=== PATIENT | female | born 1995 | race American Indian/Alaskan Native ===

== ENCOUNTER 2017-06-30 06:13 | Inpatient (IN) | payer MEDICAID ==
[~2017-06-30 06:13] MED LIST: Acetaminophen 325 MG Tab PO PRN; Carboprost Tromethamine 250 MCG/1 ML Amp IM ONE; Citric Acid/Sodium Citrate Solution 30 ML Cup PO ONE; Methylergonovine 0.2 MG/1 ML Amp IM PRN; Misoprostol 400 MCG (4 X 100 MCG TAB) RECTAL PRN; Naloxone 2 MG/2 ML Syringe IVPUSH PRN; Ondansetron 4 MG/2 ML SDV IV PRN; Oxytocin/Normal Saline 30 UNIT/500 ML BAG IV SCH; Tranexamic Acid 1,000 MG in Sodium Chloride 0.9% 100 ML IV PRN; ceFAZolin 2 GM in Premix Bag 1 BAG IV ONE; diphenhydrAMINE 50 MG/ML SDV IVPUSH PRN; ePHEDrine 50 MG/ML SDV IVPUSH PRN
[2017-06-30] MEDS: Lactated Ringers 1,000 ML IV SCH ×4 (06:35→20:15)
[2017-06-30] MEDS ORDERED: Oxytocin/Normal Saline 60 UNIT/1,000 ML BAG ONE (07:02)
--- NOTE | 2017-06-30 08:07 | OBOUT ---
DATE: 06/30/2017 DATE AND TIME OF NST: 06/30/2017 at 0630 hours to 0650 hours. REASON FOR NST: 1. Intrauterine at 39-1/7 weeks confirmed with 20-6/7 weeks' ultrasound. 2. Previous , requests repeat low transverse . 3. GBS negative. 4. Anemia of with hemoglobin 7 upon admission. 5. Chlamydia in , treated, and negative on 06/01/2017. 6. Positive THC on urine drug screen in January 2017 at [facility]. 7. G2, P1-0-0-1. NST INTERPRETATION: During this time period, the heart tone baseline is approximately 125 to 130 and there are at least two 15 x 15 beats per minute accelerations making this strip reactive. It is also noted to be reassuring. Tocometer reveals potential of 4 to 5 contractions, which the patient feels. ASSESSMENT: 1. Nonstress test, reactive and reassuring. 2. Tocometer with contractions. PLAN: Due to her low hemoglobin, we have now called for 4 units to be typed and crossmatched with 2 to be given and 2 to be on hold. We will review and may delay surgery for the blood. Initial vitals were blood pressure 129/65 and heart rate 70. However, because the patient is romi, we will need to follow clinically and closely at this point in time given her history with a previous as well. For H and P, please see Epic notes, which are scanned in and reviewed with H and P done yesterday. No significant changes are elicitted other noted as above in terms of the contractions, anemia, and vital signs. For this, records were called for, reviewed, and supplemented by the patient's history, as well as review of systems fully reviewed and felt to be otherwise noncontributory other than listed. [facility] /[id number]
[2017-06-30] MEDS: Ferrous Sulfate 325 MG Tab PO SCH ×2 (08:16→17:24)
[2017-06-30] MEDS: Prenatal Multivitamin with Calcium/Folic Acid/Iron Tab PO SCH ×2 (08:17→17:24)
[2017-06-30] MEDS ORDERED: Acetaminophen/oxyCODONE 325-5 MG Tab PO PRN (10:00)
--- NOTE | 2017-06-30 14:31 | OR ---
DATE: 06/30/2017 PREOPERATIVE DIAGNOSES: 1. Intrauterine at 39-1/7 weeks, confirmed with 20-6/7-week ultrasound. 2. Previous , requests repeat low transverse . 3. Group B Streptococcus negative. 4. Anemia of with hemoglobin 7.7 upon admission. 5. Chlamydia in -treated, negative on 06/01/2017. 6. Positive THC on urine drug screen on admission and in January 2017. 7. Status post 1.5 to 2 units packed red blood cell transfusion. 8. 2, para 1-0-0-1. POSTOPERATIVE DIAGNOSES: 1. Intrauterine at 39-1/7 weeks confirmed with 20-6/7-week ultrasound, delivered. 2. Previous , requests repeat low transverse . 3. Group B Streptococcus negative. 4. Anemia of with hemoglobin 7.7 upon admission. 5. Chlamydia in -treated, negative on 06/01/2017. 6. Positive THC on urine drug screen on admission and in January 2017. 7. Status post 1.5 to 2 units packed red blood cell transfusion. 8. 2, para 1-0-0-1. 9. Tranexamic acid 1 g given after delivery of infant. PROCEDURE PERFORMED: NST followed by repeat low transverse . ASSISTANTS: Dr. Valencia and Rianna Yoo, MS-III ANESTHESIA: Spinal. EBL: 450 mL. IV FLUIDS: 330 mL red blood cells, 100 mL of normal saline, 800 mL of lactated Ringer's and 1 g of tranexamic acid. URINE OUTPUT: 100 mL and clear yellow. START: 09:58 UTERINE INCISION: 10:03 DELIVERY: 10:04 STOP: 10:22 FINDINGS: Female with Apgars 8 and 9. DESCRIPTION OF PROCEDURE IN DETAIL: Prior to bringing the patient to the operating room, she was on her 2nd unit of packed red blood cell transfusion due to her hemoglobin being 7.7 upon admission. She was noted to have contractions and monitored contractions and it was felt that after transfusions, we would perform her repeat low transverse . After proper consent was obtained, the patient was then brought to the operating room where spinal anesthetic was administered. A Marshall was placed in the preop under sterile conditions. Abdomen was prepped and draped in normal sterile fashion and placed in supine position with a left lateral tilt. A skin incision was then made on lower abdomen in transverse Pfannenstiel-type fashion over previous scar which was noted be keloid. This was carried down the fascia and scored in midline. Subcutaneous tissue was raked laterally with a Shay retractor, and fascial incision was extended in transverse fashion using curved Wise's. Fredy clamps x2 were used to grasp the superior aspect of the fascia, and rectus muscles were dissected from the fascia using sharp and blunt technique. In a similar fashion, Fredy clamps x2 were used to grasp the inferior portion of the incision, and rectus and pyramidalis muscles were dissected from the fascia using sharp and blunt technique. Rectus muscles in the midline with blunt technique. Abdominal cavity was entered in blunt technique. Incision was extended superiorly and inferiorly in blunt technique. Baljinder O large retractor was then introduced and used. Vesicouterine peritoneum was identified and incised in transverse fashion with Metzenbaum scissors, and bladder flap was made digitally. A curvilinear incision made on lower uterine segment at 1003 hours. Uterus was entered sharply. Clear fluid returned. The uterine incision was extended transverse fashion using blunt technique. vertex was then delivered through the incision followed by rest of the without difficulty. Mouth and nares were suctioned, cord was doubly clamped and cut. was brought to [facility] Team. Then approximately 10 mL of cord blood was obtained for labs. Placenta was then delivered with gentle cord traction and fundal massage. Uterine cavity was cleared of all blood, clots, and debris with lap sponge. Nickerson clamps were used to grasp the uterine incision, this was closed in a running, locked fashion, and tied at lateral margins with 1-0 Vicryl. Bleeding on the right lateral portion of the incision was noted. A gvdcje-nr-penk stitch was placed and hemostasis reassured. First inspection of the uterine incision revealed hemostasis. Baljinder O retractor was then removed, and paracolic gutters were then cleared of all blood, clots, and debris with lap sponge. Anterior cul-de-sac was then irrigated copiously, and all blood clots removed. Second and final inspection of the uterine incision and anterior cul-de-sac revealed hemostasis. Rectus muscles were then reapproximated in midline with [id number]-[id number] stitch using 1-0 Vicryl. Subfascial tissue was found to be hemostatic. Fascia closed in a running fashion and tied at lateral margin with 0 looped PDS. Subcutaneous tissue was irrigated copiously. Hemostasis reassured. Skin was reapproximated with medium matthew. Sterile Aquacel dressing applied. Uterine fundus was firm and massaged at the conclusion of the case, -1 below umbilicus. No immediate complications were noted. Sponge, lap, needle counts correct. The patient received 2 g Ancef preoperatively, Pitocin per protocol, and we will defer Toradol at conclusion of case. We will recheck a CBC at 4:00 p.m. approximately 6 hours from now, and she does have a couple more units on hand if she needs for blood transfusion. Mother and are currently stable time of dictation. [facility] /[id number]
[2017-06-30] MEDS ORDERED: Promethazine 25 MG/ML SDV IM ONE (14:34)
[2017-06-30] MEDS ORDERED: Dexamethasone 4 MG/ML SDV IV ONE (14:36)
[2017-06-30] MEDS ORDERED: Ondansetron 4 MG/2 ML SDV IV ONE (14:36)
[2017-06-30] MEDS ORDERED: Morphine PF 1 MG/ML Amp ONE (14:36)
[2017-06-30] MEDS ORDERED: Sodium Chloride 0.9% 100 ML IV ONE (14:36)
[2017-06-30] MEDS: Simethicone 80 MG Tab.Chew PO SCH ×3 (17:24→22:11)
[2017-06-30] MEDS ORDERED: Ketorolac 30 MG/ML SDV IVPUSH ONE (18:00)
[2017-06-30] MEDS: Docusate Sodium 100 MG Cap PO PRN (22:11)
[2017-06-30] MEDS: Acetaminophen/oxyCODONE 325-5 MG Tab PO PRN (22:12)
[2017-07-01] MEDS: Ketorolac 30 MG/ML SDV IVPUSH SCH ×3 (00:27→12:27)
[2017-07-01] MEDS: Lactated Ringers 1,000 ML IV SCH (03:28)
--- NOTE | 2017-07-01 09:11 | PN ---
DATE: 07/01/2017 SUBJECTIVE: Postop day #1, status post repeat low transverse section. No concerns per nursing staff other than decreased hemoglobin, and no concerns per patient. The patient feels that her pain is well controlled on current medication. She is tolerating a clear liquid diet per patient. Ambulation is minimal as Marshall catheter is still in place. She denies fevers or chills, lightheadedness or dizziness, headaches or blurry vision, shortness of breath or chest pain, nausea or vomiting, sharp abdominal pains or swelling, erythema or tenderness in any extremity. She is not passing gas and has not yet had a bowel movement and notes mild lochia. OBJECTIVE: Vital Signs: Temperature 98.3 Fahrenheit, heart rate 56, blood pressure 109/45, respiratory rate 16, and oxygen saturation 100% on room air. General: Pleasant and in no acute distress. Heart: Regular rate and rhythm. S1 and S2. Lungs: Clear to auscultation bilaterally with normal respiratory effort. Abdomen: Soft, minimally tender to palpation, nondistended. The uterus is firm and at the level of the umbilicus. No excessive tenderness by palpation. Aquacel dressing is clean, dry, and intact. No shadowing. Neurologic: No obvious neurologic deficits. Extremities: No erythema, edema, or tenderness in the upper extremities. Lower extremities covered by compression stockings. Skin: Warm, dry, and well perfused. LABORATORY DATA: Laboratory data drawn this morning: Hemoglobin 7.9, white blood cell 11.9, platelets 242, and hematocrit 25.9. ASSESSMENT: 1. Postoperative day #1, status post repeat low transverse section. 2. Intrauterine at 39 and 1/7th weeks, confirmed with a 20 and 6/7 weeks' ultrasound. 3. Group B streptococcus negative. 4. Anemia of with hemoglobin of 7.7 upon admission, status post transfusion of 2 units packed red blood cells. Current hemoglobin 7.9 and asymptomatic. 5. Chlamydia in , treated and negative on 06/01/2017. 6. Positive THC on UDS in January 2017 at [facility] and positive THC on UDS upon admit. 7. G2, P1-0-0-1. PLAN: Remove Marshall catheter today and encourage ambulation. Advance to general diet. We will repeat CBC without diff tomorrow morning to monitor hemoglobin. Continue all other routine and postoperative cares. Please see orders for further details. The plan has been discussed with the patient. She expressed understanding and is in agreement. We will continue to monitor closely. The history, physical, assessment and plan are per Dr. Valencia; and this note is being scribed for Dr. Valencia. The above note is consistent with my exam of the patient, and above plan was formulated per my recommendations [facility] /[id number] MTDD
[2017-07-01] MEDS: Simethicone 80 MG Tab.Chew PO SCH ×4 (09:16→17:46)
[2017-07-01] MEDS: Prenatal Multivitamin with Calcium/Folic Acid/Iron Tab PO SCH (09:16)
[2017-07-01] MEDS: Ferrous Sulfate 325 MG Tab PO SCH (09:16)
[2017-07-01] MEDS: Ibuprofen 800 MG Tab PO PRN (21:06)
[2017-07-01] MEDS: Docusate Sodium 100 MG Cap PO PRN (21:07)
[2017-07-02] MEDS: Ibuprofen 800 MG Tab PO PRN (06:09)
[2017-07-02] MEDS: Acetaminophen/oxyCODONE 325-5 MG Tab PO PRN (06:10)
[2017-07-02] MEDS: Simethicone 80 MG Tab.Chew PO SCH ×2 (09:56→13:20)
[2017-07-02] MEDS: Ferrous Sulfate 325 MG Tab PO SCH (09:56)
[2017-07-02] MEDS: Prenatal Multivitamin with Calcium/Folic Acid/Iron Tab PO SCH (09:56)
[2017-07-02 11:24] VITALS: BP 122/80
[2017-07-02] MEDS ORDERED: Oxytocin/Normal Saline 30 UNIT/500 ML BAG IV ONE (14:29)
--- NOTE | 2017-07-03 06:35 | DISCH ---
ADMIT DIAGNOSES: 1. Intrauterine at 39 and 1/7 weeks, confirmed with a 20 and 6/7 weeks' ultrasound. 2. Previous section x1, requests repeat low-transverse section. Group B streptococcus negative. 3. Anemia of with hemoglobin of 7.7 upon admit, status post transfusion of 2 units packed red blood cells. Current hemoglobin 8.5 and asymptomatic. 4. Chlamydia in , treated and negative on 06/01/2017. 5. Positive THC on UDS in January 2017 at [facility] and positive THC on UDS upon admit. 6. 2, para 1-0-0-1. DISCHARGE DIAGNOSES: 1. Intrauterine at 39 and 1/7 weeks, confirmed with a 20 and 6/7 weeks' ultrasound, delivered. 2. Previous section x1, requests repeat low-transverse section. Group B streptococcus negative. 3. Anemia of with hemoglobin of 7.7 upon admit, status post transfusion of 2 units packed red blood cells. Current hemoglobin 8.5 and asymptomatic. 4. Chlamydia in , treated and negative on 06/01/2017. 5. Positive THC on UDS in January 2017 at [facility] and positive THC on UDS upon admit. 6. 2, para 1-0-0-1. PROCEDURE PERFORMED: NST followed by repeat low transverse section per Dr. Farris. HISTORY OF PRESENT ILLNESS: Please see H and P. SUMMARY OF HOSPITAL COURSE: The patient was admitted on the above date with the above diagnoses, was found to have hemoglobin of 7.7 upon admission and was transfused with 2 units packed red blood cells. She then underwent a repeat low transverse section yielding a female scores 8 and 9, weighing 7 pounds 12 ounces, 3525 g with an EBL of 450 mL under spinal anesthesia. Postoperative day 1, please see progress notes. Postoperative day 2 the date of discharge, the patient was tolerating a general diet, ambulating, urinating, passing flatus, and bowel movements without difficulty. She feels like her pain is well controlled on current medications. She denies fevers or chills, headaches or blurry vision, shortness of breath or chest pain, nausea, or vomiting, sharp abdominal pains, or swelling or tenderness in any extremity. OBJECTIVE: Vital Signs: Temperature 98.9 Fahrenheit, heart rate 82, blood pressure 118/60, respiratory rate 18, and oxygen 99% saturation on room air. General: Alert, in no acute distress. Lungs: Clear to auscultation bilaterally with normal respiratory effort. Heart: Regular rate and rhythm, S1 and S2. Abdomen: Soft, nontender, and nondistended. Uterus is firm and at the level of the umbilicus. No excessive tenderness by palpation. Aquacel dressing is clean, dry, and intact without shadowing. Extremities: No edema, erythema, or tenderness in any extremity. Skin: Warm, dry, and well perfused. LABORATORY DATA: Last drawn today on the date of discharge; white blood cells 9.1, hemoglobin 8.5, and platelets 256. CONDITION ON DISCHARGE COMPARED TO CONDITION ON ADMISSION: Improved. DISCHARGE INSTRUCTIONS: 1. Diet as tolerated. 2. Activity: No lifting more than 20 pounds, no sit-ups, straining, and pelvic rest for the next 6 weeks with immediate return to fertility was discussed with the patient. 3. Reasons to return or go to the emergency room were discussed in detail including, but not limited to temperature greater than or 100.4 Fahrenheit, foul-smelling discharge, red, hot, or tender breasts or increased vaginal bleeding, or increasing pain, drainage, or redness around the incision site. DISCHARGE MEDICATIONS: 1. Mafe-ijg-bcbbefv Tylenol or Ibuprofen for pain. 2. Iron sulfate 325 b.i.d. x6 weeks. 3. vitamins x6 weeks. 4. Percocet 5/325, 1 to 2 q.6 hours p.r.n. #30, no refills. Discussed the use of this medication, adverse unwanted effects as well as precautions with driving. It was discussed with the patient in the interim reasons to return or go to the emergency room in regard to her infant and followup for baby will be scheduled in 2 days from now on MondayAugust 03 for a well-child check with Dr. Farris. We will schedule staple removal for the mother at that visit. The patient is in agreement and expressed understanding with the above treatment plan. All of her questions have been answered. The history, physical, assessment, and plan are per Dr. Valencia, and this note is being scribed for Dr. Valencia. [facility] /[id number] MTDD
== END 2017-07-02 14:30 | disposition home or self-care (01) | DRG 766 ==
LOC: DL.OB 06:13 → OBSVTOIN 10:04 → DL.OB 10:04
PROVIDERS: ADMIT Family Medicine; ATTEND Family Medicine
PROC: 10D00Z1 Extraction of Products of Conception, Low, Open Approach (ICD-10-PCS; principal; 2017-06-30)
PROC: 6A550ZT Pheresis of Cord Blood Stem Cells, Single (ICD-10-PCS; 2017-06-30)
PROC: 30233N1 Transfusion of Nonautologous Red Blood Cells into Peripheral Vein, Percutaneous Approach (ICD-10-PCS; 2017-06-30)
DX: O34.211 Maternal care for low transverse scar from previous cesarean delivery (principal); Z37.0 Single live birth; N85.8 Other specified noninflammatory disorders of uterus; Z3A.39 39 weeks gestation of pregnancy; O99.02 Anemia complicating childbirth; D64.9 Anemia, unspecified; Z87.891 Personal history of nicotine dependence
CPT/HCPCS: 01961; 36415; 36430; 80305; 85027; 86850; 86900; 86901; 86920; 86922; A9270-GY; J0690; J1100; J1200; J1885; J2274; J2405; J2550; J2590; J7050; J7120; P9016

== ENCOUNTER 2020-08-14 08:04 | Inpatient (IN) | payer MEDICAID ==
[~2020-08-14 08:04] MED LIST changes: -Carboprost Tromethamine 250 MCG/1 ML Amp IM ONE; +Carboprost Tromethamine 250 MCG/1 ML Amp IM PRN; +Docusate Sodium 100 MG Cap PO PRN; -Ondansetron 4 MG/2 ML SDV IV PRN; +Ondansetron 4 MG/2 ML SDV IVPUSH PRN; -Oxytocin/Normal Saline 30 UNIT/500 ML BAG IV SCH; -ceFAZolin 2 GM in Premix Bag 1 BAG IV ONE
[2020-08-14] MEDS: Simethicone 80 MG Tab.Chew PO SCH ×4 (09:13→22:43)
[2020-08-14] MEDS ORDERED: Oxytocin/Normal Saline 60 UNIT/1,000 ML BAG ONE (09:48)
[2020-08-14] MEDS ORDERED: ceFAZolin 2 GM in Premix Bag 1 BAG IV ONE (10:00)
[2020-08-14] MEDS ORDERED: Lactated Ringers 1,000 ML IV SCH (10:00)
[2020-08-14] MEDS ORDERED: Citric Acid/Sodium Citrate Solution 30 ML Cup PO ONE (11:00)
[2020-08-14] MEDS: Lactated Ringers 1,000 ML IV SCH ×3 (11:12→23:48)
[2020-08-14] MEDS ORDERED: Morphine PF 1 MG/ML Amp ITHECAL ONE (11:28)
[2020-08-14] MEDS ORDERED: Ketorolac 30 MG/ML SDV IVPUSH ONE (11:28)
--- NOTE | 2020-08-14 11:41 | OBOUT ---
DATE: 08/14/2020 TIME: 8:55 to 9:15. REASON FOR NST: 1. Intrauterine at 39 weeks by 22-5/7-week ultrasound. 2. Previous x3, requests repeat low transverse . 3. Severe anemia with hemoglobin 7.4 upon admission. Did receive 1 unit of blood on 07/29/2020 and will be receiving 2 units today, 08/14/2020, with current first unit almost being finished. 4. GBS negative. 5. Positive urine drug screen for THC on 04/17/2020. 6. Limited care with 3 total visits. 7. G4, P3-0-0-3. NST INTERPRETATION: During this time period, heart tone baseline is approximately 120 and at least two 15 x 15 beats per minute accelerations, making this strip reactive as well as reassuring. Tocometer reveals potential 1 contraction minimally felt by the patient. Blood pressure 135/78, heart rate 58, temperature 97.2. ASSESSMENT: 1. Nonstress test, reactive as well as reassuring. 2. Tocometer reveals contractions not felt by the patient. PLAN: We will proceed with a total of 2 units of packed red blood cells to the OR for repeat low transverse to be started at noon or sooner if possible, and we will continue to follow clinically and closely at this point in time. Review of systems reviewed today and contributory for as noted in her history and physical, which has been updated and done through [employer] and will be scanned in the chart. [facility] /[id number] JANNIE
[2020-08-14] MEDS ORDERED: Oxytocin/Normal Saline 30 UNIT/500 ML BAG IV SCH (12:16)
[2020-08-14] MEDS ORDERED: Oxytocin/Normal Saline 30 UNIT/500 ML BAG IV ONE (16:40)
[2020-08-14] MEDS ORDERED: Promethazine 25 MG/ML SDV IM ONE (17:37)
[2020-08-14] MEDS: Ketorolac 30 MG/ML SDV IVPUSH SCH ×2 (18:17→23:48)
[2020-08-15] MEDS: Lactated Ringers 1,000 ML IV SCH (03:13)
[2020-08-15] MEDS: Ketorolac 30 MG/ML SDV IVPUSH SCH (05:28)
[2020-08-15] MEDS: Simethicone 80 MG Tab.Chew PO SCH ×3 (09:00→18:02)
[2020-08-15] MEDS: Prenatal Multivitamin with Calcium/Folic Acid/Iron Tab PO SCH (09:00)
[2020-08-15] MEDS: Acetaminophen/oxyCODONE 325-5 MG Tab PO PRN ×2 (10:00→16:12)
--- NOTE | 2020-08-15 12:07 | PN ---
DATE: 08/15/2020 Postop day #1. SUBJECTIVE: The patient is tolerating p.o., ambulating. Marshall is still in place. Passing flatus. Pain is under control. She denies any chest pain, shortness of breath, or lightheadedness. OBJECTIVE: Vital Signs: Temperature 96.8, heart rate between 60 and 62, blood pressure 118/77, and respiratory rate 16. Lungs: Clear to auscultation bilaterally. Heart: S1, S2. Regular rate and rhythm. Abdomen: Firm uterus, -2 below umbilicus. Aquacel dressing appears dry and intact. Extremities: SCDs and CAROLA hose are on. GENITOURINARY: Marshall is in place. LABORATORY DATA: White cell count 8.3, hemoglobin 7.6, and platelets of 306 with predelivery hemoglobin being 7.4 and that predelivery hemoglobin was prior to her 2 units of packed red blood cell transfusions. ASSESSMENT: 1. Postop day #1, status post repeat low transverse section. 2. Severe anemia with hemoglobin starting at 7.4, did receive 2 units of packed red blood cells and is at 7.6 today without symptoms. We will continue to follow clinically and closely. Did discuss starting the patient on iron, following closely as an outpatient, and she understands and agrees. We will start iron at this point in time. We will continue on her vitamin and follow for any symptoms. PLAN: As above. Possible discharge tomorrow afternoon discussed as well. The patient will let us know and we will see how well her and her baby do. [facility] /[id number]
[2020-08-15] MEDS: Ferrous Sulfate 325 MG Tab PO SCH (12:51)
[2020-08-15] MEDS: Ibuprofen 800 MG Tab PO PRN (16:11)
[2020-08-16] MEDS: Ibuprofen 800 MG Tab PO PRN ×2 (00:50→08:47)
[2020-08-16] MEDS: Acetaminophen/oxyCODONE 325-5 MG Tab PO PRN ×3 (00:55→13:22)
[2020-08-16] MEDS: Simethicone 80 MG Tab.Chew PO SCH ×3 (01:08→13:20)
[2020-08-16] MEDS: Prenatal Multivitamin with Calcium/Folic Acid/Iron Tab PO SCH (08:47)
[2020-08-16] MEDS: Ferrous Sulfate 325 MG Tab PO SCH (08:47)
[2020-08-16 09:26] VITALS: PULSE 64
--- NOTE | 2020-08-16 11:31 | DISCH ---
ADMITTING DIAGNOSES: 1. Intrauterine at 39 weeks by 22-5/7-week ultrasound. 2. Previous section x3, request repeat low-transverse section. 3. Severe anemia. Hemoglobin 7.4 upon admission, had received 1 unit of packed red blood cells on 07/29/2020 and 2 units on 08/14/2020 - date of admission. 4. Group B Streptococcus negative. 5. Positive urine drug screen for THC on 04/17/2020 and on date of admission 08/14/2020. 6. Limited care with total of 3 visits. 7. Nuchal cord x1, reduced upon delivery. 8. G4, P3-0-0-3. DISCHARGE DIAGNOSES: 1. Intrauterine at 39 weeks by 22-5/7-week ultrasound - delivered. 2. Previous section x3, request repeat low-transverse section. 3. Severe anemia. Hemoglobin 7.4 upon admission, had received 1 unit of packed red blood cells on 07/29/2020 and 2 units on 08/14/2020 - date of admission. 4. Group B Streptococcus negative. 5. Positive urine drug screen for THC on 04/17/2020 and on date of admission 08/14/2020. 6. Limited care with total of 3 visits. 7. Nuchal cord x1, reduced upon delivery. 8. G4, P3-0-0-3. 9. Anemia, acute blood loss. Hemoglobin at 7.6 post delivery after 2 units of packed red blood cells - asymptomatic, no further blood transfusions given. PROCEDURE PERFORMED: Nonstress test followed by repeat low-transverse section per Dr. Farris. HISTORY OF PRESENT ILLNESS: Please see H and P. SUMMARY OF HOSPITAL COURSE: The patient admitted on the above date with above diagnoses, previously was supposed to receive 2 units of packed red blood cells, did come in 07/29/2020 and received 1 unit, and then upon admission seam taper machine of 08/14/2020 received total of 2 units. She underwent a repeat low- transverse yielding male scores of 9 and 9, weighing 7 pounds 8 ounces (3415 g) under spinal anesthesia with an EBL of 450 mL. Postop day #1, please see progress note. Postop day #2, date of discharge, the patient was tolerating p.o., was ambulating, urinating, passing flatus, requesting discharge. No chest pain, shortness of breath, lightheadedness noted. OBJECTIVE: Vital Signs: Temperature 98, heart rate 64, blood pressure 131/65, respiratory rate 20, O2 sats 100% on room air. Appearance: No apparent distress. Lungs: Clear to auscultation bilaterally. No increased work of breathing. Heart: S1, S2. Regular rate and rhythm. Abdomen: Firm uterus. -2 below umbilicus. Aquacel dressing appears dry and intact. Extremities: Trace pedal edema. No calf pain. CONDITION ON DISCHARGE COMPARED TO CONDITION ON ADMISSION: Improved. DISCHARGE INSTRUCTIONS: 1. Diet as tolerated. 2. Activity: No lifting more than 20 pounds. No sit-ups or straining, and pelvic rest for the next 6 weeks with immediate return of fertility fully discussed with the patient. 3. Reasons to return was discussed with the patient in detail including, but not limited to temperature greater than 100.4, foul-smelling discharge, red or tender breasts, or increased vaginal bleeding as well as any chest pain, shortness of breath, or lightheadedness. DISCHARGE MEDICATIONS: 1. Percocet 5/325, 1 to 2 q.6 hours p.r.n., #15, no refills. Discussed the use of this medication, adverse and unwanted effects, as well as precautions with driving. 2. Iron sulfate 325 b.i.d. x6 weeks, dispense q.s., no refills. 3. Colace 100 mg b.i.d. p.r.n., #60, no refills. FOLLOWUP: On 08/18/2020 with her baby at the same time and for staple removal. Did discuss importance of followup and ramifications of not doing so in regard to her as well as her baby. She understands and agrees with the above treatment plan. Please see discharge paperwork for further details. [facility] /[id number]
[2020-08-16 13:29] VITALS: BP 138/71
--- NOTE | 2020-08-17 07:56 | OR ---
DATE: 08/14/2020 PREOPERATIVE DIAGNOSES: 1. Intrauterine at 39 weeks by 22 and 5/7 weeks ultrasound. 2. Previous x3, request repeat low-transverse . 3. Severe anemia with hemoglobin 7.4, on date of admission, status post 1 unit of packed red blood cells earlier in the month on 07/29/2020 and completing her second unit on 08/14/2020 intraoperatively. 4. GBS negative. 5. Positive urine drug screen for THC on 04/17/2020 at [facility] and undergoing drug screen currently. 6. Limited care with 3 total visits. 7. G4, P3-0-0-3. POSTOPERATIVE DIAGNOSES: 1. Intrauterine at 39 weeks by 22 and 5/7 weeks ultrasound, delivered. 2. Previous x3, request repeat low-transverse . 3. Severe anemia with hemoglobin 7.4, on date of admission, status post 1 unit of packed red blood cells earlier in the month on 07/29/2020 and completing her second unit on 08/14/2020 intraoperatively. 4. GBS negative. 5. Positive urine drug screen for THC on 04/17/2020 at [facility] and undergoing drug screen currently. 6. Limited care with 3 total visits. 7. G4, P3-0-0-3. 8. Nuchal cord x1, reduced bluntly with delivery. PROCEDURE PERFORMED: NST followed by repeat low-transverse . CARRIAGE FEEDER: Nitesh Harrison MD ANESTHESIA: Spinal. ESTIMATED BLOOD LOSS: 450 mL. IV FLUIDS: 1000 mL of IV fluids and then red blood cells are transfusing on her second unit. URINE OUTPUT: 50 mL and clear yellow. START: 11:45. UTERINE INCISION: 11:49. DELIVERY: 11:49. STOP: 12:03. FINDINGS: Male, score 9 and 9, weight pending. DESCRIPTION OF PROCEDURE IN DETAIL: After proper consent was obtained, the patient was brought to the operating room, where spinal anesthetic was administered. Marshall was placed under preoperative under sterile conditions. The abdomen was prepped and draped in normal sterile fashion. The patient placed in supine position in left lateral tilt. A skin incision was made over lower abdomen in transverse Pfannenstiel-type fashion. This was carried down the fascia and scored in the midline. Subcutaneous tissue raked laterally with Shay traction. Fascial incision was extended in transverse fashion using curved Wise's. Fredy clamps x2 were used to grasp the superior aspect of the fascia and rectus muscles dissected from the fascia using sharp and blunt technique. In a similar fashion, Fredy clamps x2 were used to grasp the inferior portion of the incision. The rectus pyramidalis muscle was dissected from the fascia using sharp and blunt technique. Rectus muscles were in the midline with blunt technique. Abdominal cavity was entered in blunt technique, and incision was extended superiorly and inferiorly in blunt technique. Baljinder O retractor was then introduced and used. Vesicouterine peritoneum was identified, incised in transverse fashion with Metzenbaum scissors, and bladder flap was made digitally. A curvilinear incision was made on lower uterine segment at 1149 hours. Uterus was entered sharply. Uterine incision was then extended in transverse fashion using blunt technique. Bulging bag of water was noted and ruptured with Allis clamps yielding copious amounts of clear fluid. vertex was then delivered through the incision followed by rest of the with nuchal cord x1, reduced bluntly at delivery. Mouth and nares were suctioned. Cord was doubly clamped and cut. Infant was brought over to team. Then, approximately 10 mL of cord blood was obtained for labs. Placenta was then delivered with gentle cord traction and fundal massage. Uterine cavity was cleared of all blood clots and debris with lap sponge. Nickerson clamps were used to grasp the incision and this was closed in a running locked fashion and tied at lateral margins with 1-0 Vicryl. One [id number] stitch applied over midline incision reassured hemostasis. First inspection of the uterine incision revealed hemostasis. Baljinder O retractor was then removed and paracolic gutters were then cleared of all blood clots and debris with lap sponge. Anterior cul-de-sac was irrigated copiously. All blood clots were removed. Second and final inspection of uterine incision and anterior cul-de-sac revealed hemostasis. Rectus muscles were then reapproximated in midline with [id number] stitch using 1-0 Vicryl. Subfascial tissues were found to be hemostatic. Fascia was closed in a running fashion and tied at lateral margins with 0 looped PDS. Subcutaneous tissue irrigated copiously. Hemostasis was reassured. Skin was reapproximated with medium matthew. Sterile Aquacel dressing applied. Uterine fundus was firm and massaged at the conclusion of the case, approximately -2 below umbilicus. No immediate complications were noted. Sponge, lap, and needle counts were correct. The patient received 2 g of Ancef preoperatively, Pitocin per protocol, received Toradol at the conclusion of the case for pain control, will complete her second unit of packed red blood cells today. Mother and are currently stable at time of dictation. [facility] /[id number]
== END 2020-08-16 15:42 | disposition home or self-care (01) | DRG 787 ==
LOC: DL.MS 08:04 → DL.OB 08:07
PROVIDERS: ADMIT Family Medicine; ATTEND Family Medicine
PROC: 10D00Z1 Extraction of Products of Conception, Low, Open Approach (ICD-10-PCS; principal; 2020-08-14)
PROC: 30233N1 Transfusion of Nonautologous Red Blood Cells into Peripheral Vein, Percutaneous Approach (ICD-10-PCS; 2020-08-14)
DX: O34.211 Maternal care for low transverse scar from previous cesarean delivery (principal); D62 Acute posthemorrhagic anemia; O99.324 Drug use complicating childbirth; Z3A.39 39 weeks gestation of pregnancy; Z37.0 Single live birth; O99.02 Anemia complicating childbirth; O69.81X0 Labor and delivery complicated by cord around neck, without compression, not applicable or unspecified; Z20.822 Contact with and (suspected) exposure to COVID-19; F19.90 Other psychoactive substance use, unspecified, uncomplicated
CPT/HCPCS: 36415; 36430; 80305-QW; 85027; 86850; 86900; 86901; 86920; 86922; A9270-GY; J0690; J1885; J2274; J2405; J2550; J2590; J7120; P9016; U0002

== ENCOUNTER 2021-08-24 07:29 | Inpatient (IN) | payer MEDICAID ==
[2021-08-24] MEDS ORDERED: Sodium Chloride 0.9% 1,000 ML IV ONE (07:40)
[2021-08-24 08:02] LABS: AMPHETAMINES,URINE NEGATIVE (NEGATIVE); BARBITURATES,URINE NEGATIVE (NEGATIVE); BENZODIAZEPINE,URINE NEGATIVE (NEGATIVE); MDMA (ECSTASY), URINE NEGATIVE (NEGATIVE); METHADONE,URINE NEGATIVE (NEGATIVE); METHAMPHETAMINES,URINE NEGATIVE (NEGATIVE); OPIATES,URINE NEGATIVE (NEGATIVE); OXYCODONE,URINE NEGATIVE (NEGATIVE); PHENCYCLIDINE,URINE NEGATIVE (NEGATIVE); TCA,URINE NEGATIVE (NEGATIVE)
[2021-08-24 08:24] LABS: CORONAVIRUS COVID-19 NAA NEGATIVE (NEGATIVE); RESPIRATORY SYNCYTIAL VIR NAA NEGATIVE (NEGATIVE)
[2021-08-24 08:34] LABS: CHLORIDE,CL 100 mmol/L (98-107); SODIUM,NA 134 mmol/L (136-145)
[2021-08-24 08:50] LABS: ESTIMATED GFR > 60
[2021-08-24] MEDS ORDERED: cefTRIAXone 1 GM in Sodium Chloride 0.9% 50 ML IV ONE (08:56)
[2021-08-24] MEDS ORDERED: Magnesium Sulfate/Water 2 GM in Premix Bag 1 BAG IV ONE (08:57)
[2021-08-24] MEDS ORDERED: Ketorolac 30 MG/ML SDV IVPUSH ONE (09:04)
[2021-08-24] MEDS ORDERED: Ondansetron 4 MG Tab.DIS PO PRN (09:53)
[2021-08-24] MEDS ORDERED: Promethazine 25 MG Tab PO PRN (09:53)
[2021-08-24] MEDS: Sodium Chloride 0.9% 1,000 ML IV SCH ×2 (10:52→17:37)
[2021-08-24] MEDS: Acetaminophen 325 MG Tab PO PRN ×2 (15:05→21:36)
[2021-08-25] MEDS: Sodium Chloride 0.9% 1,000 ML IV SCH (00:13)
[2021-08-25] MEDS: Acetaminophen 325 MG Tab PO PRN ×3 (04:44→20:17)
[2021-08-25] MEDS: cefTRIAXone 1 GM in Sodium Chloride 0.9% 50 ML IV SCH (08:16)
[2021-08-25] MEDS: Ferrous Sulfate 325 MG Tab PO SCH (08:17)
[2021-08-26] MEDS: Acetaminophen 325 MG Tab PO PRN (02:34)
[2021-08-26] MEDS: Ferrous Sulfate 325 MG Tab PO SCH (08:11)
[2021-08-26] MEDS: cefTRIAXone 1 GM in Sodium Chloride 0.9% 50 ML IV SCH (08:12)
[2021-08-26 11:46] LABS: C.TRACHOMATIS BY TMA Negative (Negative); N.GONORRHOEAE BY TMA Negative (Negative)
[2021-08-26 11:56] VITALS: BP 132/71; PULSE 98
[2021-08-26] MEDS ORDERED: Cefuroxime 250 MG Tab PO SCH (21:00)
== END 2021-08-26 14:00 | disposition home or self-care (01) | DRG 833 ==
LOC: DL.ED 07:29 → DL.MS 09:05
PROVIDERS: ADMIT Family Medicine; ATTEND Family Medicine
DX: O23.02 Infections of kidney in pregnancy, second trimester (principal); Z3A.19 19 weeks gestation of pregnancy; E83.42 Hypomagnesemia; O99.282 Endocrine, nutritional and metabolic diseases complicating pregnancy, second trimester; Z87.891 Personal history of nicotine dependence; Z20.822 Contact with and (suspected) exposure to COVID-19; O99.02 Anemia complicating childbirth; D64.9 Anemia, unspecified
CPT/HCPCS: 0241U; 36415; 76815; 80053; 80305; 80307; 81001; 81025; 82150; 83605; 83690; 83735; 84443; 84702; 85025; 86140; 86592; 86762; 86803; 86850; 86900; 86901; 87040; 87086; 87088; 87186; 87210; 87340; 87389; 87491; 87591; 96365; 99285; A9270-GY; J0696; J1885; J3475; J7030

== ENCOUNTER 2022-01-18 12:00 | Inpatient (IN) | payer MEDICAID ==
[~2022-01-18 12:00] MED LIST changes: -Acetaminophen 325 MG Tab PO PRN; -Carboprost Tromethamine 250 MCG/1 ML Amp IM PRN; -Docusate Sodium 100 MG Cap PO PRN; -Methylergonovine 0.2 MG/1 ML Amp IM PRN; -Misoprostol 400 MCG (4 X 100 MCG TAB) RECTAL PRN; -Naloxone 2 MG/2 ML Syringe IVPUSH PRN; -Ondansetron 4 MG/2 ML SDV IVPUSH PRN; -Tranexamic Acid 1,000 MG in Sodium Chloride 0.9% 100 ML IV PRN; -diphenhydrAMINE 50 MG/ML SDV IVPUSH PRN; -ePHEDrine 50 MG/ML SDV IVPUSH PRN
[2022-01-18] MEDS ORDERED: Acetaminophen/oxyCODONE 325-5 MG Tab PO PRN (13:15)
[2022-01-18] MEDS ORDERED: Ondansetron 4 MG/2 ML SDV IVPUSH PRN (13:15)
[2022-01-18] MEDS ORDERED: Acetaminophen 325 MG Tab PO PRN (13:15)
[2022-01-18] MEDS ORDERED: diphenhydrAMINE 50 MG/ML SDV IVPUSH PRN (13:15)
[2022-01-18] MEDS ORDERED: Carboprost Tromethamine 250 MCG/1 ML Amp IM PRN (13:15)
[2022-01-18] MEDS ORDERED: Misoprostol 400 MCG (4 X 100 MCG TAB) RECTAL PRN (13:15)
[2022-01-18] MEDS ORDERED: Methylergonovine 0.2 MG/1 ML Amp IM PRN (13:15)
[2022-01-18] MEDS ORDERED: ePHEDrine 50 MG/ML SDV IVPUSH PRN (13:15)
[2022-01-18] MEDS ORDERED: Naloxone 2 MG/2 ML Syringe IVPUSH PRN (13:15)
[2022-01-18] MEDS ORDERED: ceFAZolin 2 GM in Premix Bag 1 BAG IV ONE (13:15)
[2022-01-18] MEDS ORDERED: Tranexamic Acid 1,000 MG in Sodium Chloride 0.9% 100 ML IV PRN (13:15)
[2022-01-18] MEDS ORDERED: Citric Acid/Sodium Citrate Solution 30 ML Cup ONE (14:26)
[2022-01-18] MEDS ORDERED: Oxytocin/Normal Saline 60 UNIT/1,000 ML BAG ONE (14:38)
[2022-01-18 14:39] LABS: ESTIMATED GFR 130 mL/min (>=60)
[2022-01-18] MEDS: Lactated Ringers 1,000 ML IV SCH ×3 (14:48→23:31)
[2022-01-18] MEDS ORDERED: Morphine PF 1 MG/ML Amp ONE ×2 (15:04→16:30)
[2022-01-18] MEDS ORDERED: fentaNYL 100 MCG/2 ML SDV ONE ×2 (15:04→16:30)
[2022-01-18] MEDS ORDERED: Carboprost Tromethamine 250 MCG/1 ML Amp ONE (15:05)
[2022-01-18] MEDS ORDERED: Succinylcholine 200 MG/10 ML MDV ONE (15:05)
[2022-01-18] MEDS ORDERED: Methylergonovine 0.2 MG/1 ML Amp ONE (15:05)
[2022-01-18] MEDS ORDERED: Vasopressin 20 Units/1 ML MDV ONE (15:05)
[2022-01-18] MEDS ORDERED: Rocuronium 100 MG/10 ML MDV ONE (15:05)
[2022-01-18] MEDS ORDERED: Oxytocin/Normal Saline 30 UNIT/500 ML BAG IV ONE (16:30)
[2022-01-18] MEDS ORDERED: Phenylephrine 1% 10 MG/ML SDV IV ONE (16:30)
[2022-01-18] MEDS ORDERED: Sodium Chloride 0.9% 10 ML Syringe IV ONE (16:30)
[2022-01-18] MEDS ORDERED: Dexamethasone 4 MG/ML SDV IV ONE (16:30)
[2022-01-18] MEDS ORDERED: Ondansetron 4 MG/2 ML SDV IV ONE (16:30)
[2022-01-18] MEDS ORDERED: Lactated Ringers 1,000 ML IV ONE (16:30)
[2022-01-18] MEDS ORDERED: EPINEPHrine 1 MG/ML SDV ONE (16:30)
[2022-01-18] MEDS ORDERED: Dexmedetomidine 200 MCG/2 ML SDV ONE ×2 (16:30→16:31)
[2022-01-18] MEDS: Oxytocin/Normal Saline 30 UNIT/500 ML BAG IV SCH ×3 (16:50→20:15)
[2022-01-18] MEDS: Prenatal Multivitamin with Calcium/Folic Acid/Iron Tab PO SCH (18:15)
[2022-01-18] MEDS: Simethicone 80 MG Tab.Chew PO SCH ×3 (18:15→22:18)
[2022-01-18] MEDS: Ketorolac 30 MG/ML SDV IVPUSH SCH ×2 (18:31→21:24)
[2022-01-18] MEDS ORDERED: Misoprostol 400 MCG (4 X 100 MCG TAB) ONE (19:41)
[2022-01-18] MEDS: Acetaminophen/oxyCODONE 325-5 MG Tab PO PRN (20:59)
[2022-01-19] MEDS: Acetaminophen/oxyCODONE 325-5 MG Tab PO PRN ×4 (01:44→21:32)
[2022-01-19] MEDS: Lactated Ringers 1,000 ML IV SCH ×2 (05:18→12:58)
[2022-01-19] MEDS: Prenatal Multivitamin with Calcium/Folic Acid/Iron Tab PO SCH (09:34)
[2022-01-19] MEDS: Simethicone 80 MG Tab.Chew PO SCH ×5 (09:34→21:34)
[2022-01-19] MEDS: Ibuprofen 800 MG Tab PO PRN (19:45)
[2022-01-20] MEDS: Acetaminophen/oxyCODONE 325-5 MG Tab PO PRN ×4 (02:56→17:45)
[2022-01-20] MEDS: Docusate Sodium 100 MG Cap PO PRN (08:49)
[2022-01-20] MEDS: Prenatal Multivitamin with Calcium/Folic Acid/Iron Tab PO SCH (08:49)
[2022-01-20] MEDS: Simethicone 80 MG Tab.Chew PO SCH ×3 (08:49→16:27)
[2022-01-20] MEDS: Ibuprofen 800 MG Tab PO PRN ×2 (08:51→23:57)
[2022-01-21] MEDS: Simethicone 80 MG Tab.Chew PO SCH ×3 (04:31→13:34)
[2022-01-21] MEDS: Docusate Sodium 100 MG Cap PO PRN (07:59)
[2022-01-21] MEDS: Acetaminophen/oxyCODONE 325-5 MG Tab PO PRN (07:59)
[2022-01-21] MEDS: Prenatal Multivitamin with Calcium/Folic Acid/Iron Tab PO SCH (07:59)
[2022-01-21] MEDS: Ibuprofen 800 MG Tab PO PRN (07:59)
[2022-01-21 09:49] VITALS: BP 123/77; PULSE 72
== END 2022-01-21 13:15 | disposition home or self-care (01) | DRG 787 ==
LOC: DL.MS 13:47 → OBSVTOIN 15:46 → DL.OB 21:37 → DL.MS 01-19 16:49
PROVIDERS: ADMIT Family Medicine; ATTEND Family Medicine
PROC: 10D00Z1 Extraction of Products of Conception, Low, Open Approach (ICD-10-PCS; principal; 2022-01-18)
PROC: 4A1HXCZ Monitoring of Products of Conception, Cardiac Rate, External Approach (ICD-10-PCS; 2022-01-18)
PROC: 30233N1 Transfusion of Nonautologous Red Blood Cells into Peripheral Vein, Percutaneous Approach (ICD-10-PCS; 2022-01-20)
DX: O34.211 Maternal care for low transverse scar from previous cesarean delivery (principal); D62 Acute posthemorrhagic anemia; O72.1 Other immediate postpartum hemorrhage; Z3A.39 39 weeks gestation of pregnancy; Z37.0 Single live birth; O13.4 Gestational [pregnancy-induced] hypertension without significant proteinuria, complicating childbirth; O99.02 Anemia complicating childbirth; Z20.822 Contact with and (suspected) exposure to COVID-19
CPT/HCPCS: 01961; 36415; 36430; 59025; 81003; 82565; 82570; 83615; 84156; 84450; 84460; 84520; 84550; 85027; 86850; 86900; 86901; 86920; 86922; 94010; A9270-GY; J0171; J0330; J0690; J1100; J1885; J2210; J2274; J2370; J2405; J2590; J3010; J3490; J7120; P9016; U0002

== ENCOUNTER 2025-01-31 05:53 | Emergency (ER) | payer SELFPAY ==
[2025-01-31] MEDS: Take Home: Amoxicillin/Clavulanate K 875-125 MG Tab, 6 Tab Pack PO ONE (06:36)
[2025-01-31] MEDS: Lidocaine 1% with EPINEPHrine 1:100,000 20 ML MDV INJECT ONE (06:37)
[2025-01-31] MEDS: Lidocaine 1% with EPINEPHrine 1:100,000 20 ML MDV ONE (06:37)
[2025-01-31 06:41] VITALS: BP 130/88; PULSE 88
== END 2025-01-31 06:46 | disposition home or self-care (01) ==
LOC: DL.ED 05:53
DX: N75.1 Abscess of Bartholin's gland (principal)
CPT/HCPCS: 56420; 87070; 99283; A9270; J2004